=== PATIENT | male | born 2000 | race Caucasian/White ===

== ENCOUNTER 2018-02-17 11:03 | Emergency (ER) | payer OTHER ==
[2018-02-17 11:23] VITALS: RESP 18
[2018-02-17] MEDS ORDERED: IBUPROFEN 800 MG TAB PO STA (11:53)
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
[2018-02-17 12:31] VITALS: BP 143/88; PULSE 78; TEMP 99.2
== END 2018-02-17 12:30 | disposition home or self-care (01) ==
LOC: EC 11:03
DX: T22.212A Burn of second degree of left forearm, initial encounter (principal); T23.201A Burn of second degree of right hand, unspecified site, initial encounter; T23.102A Burn of first degree of left hand, unspecified site, initial encounter; T20.10XA Burn of first degree of head, face, and neck, unspecified site, initial encounter; T22.111A Burn of first degree of right forearm, initial encounter; T24.112A Burn of first degree of left thigh, initial encounter; T31.0 Burns involving less than 10% of body surface; Z91.013 Allergy to seafood; X14.1XXA Other contact with hot air and other hot gases, initial encounter; Y92.69 Other specified industrial and construction area as the place of occurrence of the external cause; Y99.0 Civilian activity done for income or pay
CPT/HCPCS: 16020; 99283

== ENCOUNTER 2021-08-13 09:51 | Day surgery (SDC) | payer OTHER ==
[~2021-08-13 09:51] MED LIST: LACTATED RINGERS 1,000 ML IV SCH; LIDOCAINE 1% (10MG/ML) FOR IV START INTRADERMA PRN
[2021-08-13 10:19] VITALS: TEMP 97.8
[2021-08-13] MEDS ORDERED: GLYCOPYRROLATE 0.2 MG/ML 2 ML VIAL ONE (11:13)
[2021-08-13] MEDS ORDERED: PROPOFOL 10 MG/ML 20 ML VIAL IV ONE (11:13)
--- NOTE | 2021-08-13 11:24 | P.GSHP ---
History of Present Illness H&P Date: 08/13/21 Chief Complaint: GI bleed Is a 21-year-old male with history of rectal bleeding. Patient presents today for colonoscopy. Past Medical History Past Medical History: No Reported History Additional Past Medical History / Comment(s): POSSIBLE GLUTEN INTOLERANT History of Any Multi-Drug Resistant Organisms: None Reported Past Surgical History: Tonsillectomy Past Anesthesia/Blood Transfusion Reactions: No Reported Reaction Past Psychological History: Depression Smoking Status: Unknown if ever smoked Past Alcohol Use History: None Reported Past Drug Use History: None Reported Medications and Allergies Home Medications Medication Instructions Recorded Confirmed Type Ibuprofen 800 mg PO Q6HR PRN #20 tablet 02/17/18 08/13/21 Rx Allergies Allergy/AdvReac Type Severity Reaction Status Date / Time shellfish derived [Shellfish] Allergy Unknown Verified 08/13/21 10:12 Surgical - Exam Vital Signs Temp Pulse Resp BP Pulse Ox 97.8 F 85 16 131/71 97 08/13/21 10:18 08/13/21 10:18 08/13/21 10:18 08/13/21 10:18 08/13/21 10:18 - General well developed, well nourished, no distress - Eyes PERRL - ENT normal pinna - Neck no masses - Respiratory normal expansion - Cardiovascular Rhythm: regular - Abdomen Abdomen: soft, non tender Assessment and Plan Assessment: GI bleed. We'll perform colonoscopy.
--- NOTE | 2021-08-13 11:45 | P.OP ---
Date of Procedure: 08/13/21 Preoperative Diagnosis: GI bleed Postoperative Diagnosis: Rectal polyp Internal hemorrhoids Procedure(s) Performed: Colonoscopy Anesthesia: MAC Surgeon: Dung Dueñas Pathology: other (Rectal polyp) Condition: stable Disposition: PACU Description of Procedure: The patient's placed on the endoscopy table in the lateral position. He received IV sedation. Digital rectal exam revealed some internal hemorrhoids and a patulous anus. Flexible colonoscope was then placed patient anus and passed throughout the entire colon. The ileocecal valve was visualized. The cecum, ascending and transverse colon appeared normal. The descending and sigmoid colon appeared normal. The scope was then brought back the rectum and this appeared normal. The scope was then withdrawn through the anus and a few internal hemorrhoids were noted the scope was withdrawn for patient. There was no active GI bleed source. Presumed patient may have had rectal bleeding from either anal trauma or internal hemorrhoids
[2021-08-13 12:04] VITALS: BP 137/78; PULSE 55; RESP 16
--- NOTE | 2021-08-16 13:18 | CDI ---
[facility] [address] [place] [address] Date: 08/16/2021 01:15:35 PM From: Za Zhou Phone: Admit Date: 08/13/2021 09:51:00 AM Patient Name: Mando Graves Visit Number: [id number] Discharge Date: Payor: MICHAEL Smiley Dear Dr. Dueñas, Please provide clarification as to the procedure performed. No mention of biopsy or polypectomy in report yet there is a pathology report attached to the chart. Please clarify. Thank you for our kind consideration. Addendum made HARRY
== END 2021-08-13 12:29 | disposition home or self-care (01) ==
LOC: ORWHC2ENDO 09:51
PROVIDERS: ATTEND Surgery
DX: K64.8 Other hemorrhoids (principal); K62.1 Rectal polyp; F32.A Depression, unspecified; K92.2 Gastrointestinal hemorrhage, unspecified; Z98.890 Other specified postprocedural states; Z91.013 Allergy to seafood
CPT/HCPCS: 88305; 45380; J2704